=== PATIENT | female | born 1945 | race Two or more races ===

== ENCOUNTER 2018-03-25 09:34 | Outpatient (CLI) | payer OTHER ==
[~2018-03-25 09:34] MED LIST: PLAVIX75 MG
== END 2018-03-25 09:51 | disposition home or self-care (01) ==
LOC: RAD 501 09:34
DX: M25.551 Pain in right hip (principal); M25.552 Pain in left hip

== ENCOUNTER 2020-12-25 10:54 | Outpatient (CLI) | payer OTHER | END 2020-12-25 10:59 | disposition home or self-care (01) | LOC: RAD 10:54 | PROVIDERS: ATTEND Family Medicine | DX: M51.37 Other intervertebral disc degeneration, lumbosacral region (principal); M25.78 Osteophyte, vertebrae; M54.5 Low back pain ==

== ENCOUNTER 2021-02-07 08:49 | Outpatient (CLI) | payer OTHER | END 2021-02-07 08:55 | disposition home or self-care (01) | LOC: RAD 08:49 | PROVIDERS: ATTEND Physical Medicine & Rehabilitation | DX: M17.12 Unilateral primary osteoarthritis, left knee (principal); M16.11 Unilateral primary osteoarthritis, right hip; M16.12 Unilateral primary osteoarthritis, left hip ==

== ENCOUNTER 2022-07-09 13:02 | Outpatient (CLI) | payer OTHER | END 2022-07-09 13:05 | disposition home or self-care (01) | LOC: NUCLEAR 13:02 | PROVIDERS: ATTEND Internal Medicine Rheumatology | DX: M81.0 Age-related osteoporosis without current pathological fracture (principal) ==

== ENCOUNTER 2024-02-23 07:09 | Emergency (ER) | payer OTHER ==
[~2024-02-23] VITALS: Ht 160 cm; Wt 59.0 kg
[2024-02-23] MEDS ORDERED: CARVEDILOL6.25 MG (07:36)
[2024-02-23] MEDS ORDERED: ACIPHEX20 MG (07:36)
[2024-02-23] MEDS ORDERED: ADULT LOW DOSE81 M1 PO (07:36)
[2024-02-23] MEDS ORDERED: AVAPRO300 MG PO (07:36)
[2024-02-23 07:37] VITALS: BP 126/77; O2SAT 96
[2024-02-23] MEDS ORDERED: SINGULAIR10 MG PO (07:37)
[2024-02-23 08:57] LABS: HEMATOCRIT 40.9 % (36.0-45.00); HEMOGLOBIN 13.9 g/dL (12.0-15.00); MEAN CELL VOLUME 91.7 fL (80.00-100.00); MEAN CORPUSCULAR HEMOGLOBIN 31.2 pg (27.00-32.0); PLATELET COUNT 241 K/uL (150-450); RED BLOOD COUNT 4.46 M/uL (4.00-6.00); RED CELL DISTRIBUTION WIDTH 13.8 % (11.5-14.5)
[2024-02-23 09:30] LABS: ALBUMIN 4.1 gm/dL (3.4-5.0); BILIRUBIN TOTAL 2.02 mg/dL (0.3-1.2); BILIRUBIN,CONJUGATED 0.28 mg/dL (0.0-0.2); BILIRUBIN,UNCONJUGATED 1.74 mg/dL (0.0-0.6); CALCIUM 9.5 mg/dL (8.5-10.1); CREATININE SERUM 0.73 mg/dL (0.55-1.02); GFR 76.71; POTASSIUM 4.19 mEq/L (3.5-5.1); TOTAL PROTEIN 7.8 gm/dL (6.4-8.2)
[2024-02-23 09:58] LABS: URINE APPEARANCE Cloudy; URINE BILIRRUBIN Negative (NEGATIVE); URINE BLOOD Negative; URINE COLOR Yellow; URINE GLUCOSE Negative (NEGATIVE); URINE KETONE Negative (NEGATIVE); URINE LEUKOCYTE Negative; URINE NITRATE Negative; URINE PROTEIN Negative (NEGATIVE)
[2024-02-23 10:04] LABS: URINE BACTERIA 741.9 uL (0.0-1933); URINE EPITHELIAL CELLS 60.3 uL (0.0-38.8); URINE RBC 3.8 uL (0.0-20.8)
[2024-02-23] MEDS ORDERED: CIPROFLOXACIN IN 5 % DEXTROSE 400 MG/200 ML PIGGYBAG IV STA (11:36)
[2024-02-23] MEDS ORDERED: METRONIDAZOLE/SODIUM CHLORIDE 500 MG/100 ML PIGGYBACK IV STA (11:37)
== END 2024-02-23 12:57 | disposition home or self-care (01) ==
LOC: ER 07:10
PROVIDERS: General Practice
DX: K59.00 Constipation, unspecified (principal); Z91.011 Allergy to milk products; Z88.8 Allergy status to other drugs, medicaments and biological substances
CPT/HCPCS: 36415; 74176; 74240; 96365; 99284; J0744; J3490

== ENCOUNTER 2024-07-11 13:24 | Outpatient (CLI) | payer OTHER ==
[~2024-07-11 13:24] MED LIST changes: +ACIPHEX20 MG; +ADULT LOW DOSE81 M1 PO; +AVAPRO300 MG PO; +CARVEDILOL6.25 MG; +SINGULAIR10 MG PO
== END 2024-07-11 13:27 | disposition home or self-care (01) ==
LOC: NUCLEAR 13:24
PROVIDERS: ATTEND Internal Medicine Rheumatology
DX: M81.0 Age-related osteoporosis without current pathological fracture (principal)